=== PATIENT | female | born 1950 | race Caucasian/White ===

== ENCOUNTER 2018-09-20 13:33 | Emergency (ER) | payer MEDICARE, OTHER ==
[2018-09-20 14:23] VITALS: BP 158/87
--- NOTE | 2018-09-20 14:30 | ED ---
Adult Trauma - HPI Summary HPI Summary: Patient is a 68-year-old female presenting to the ED with facial injury which occurred last evening. She states she was walking into the bathroom, tripped and fell, hitting the left side of her face and her nose. She states she went immediately back to bed. She awoke with some bleeding from the nose, but denies any pain. She denies any headache, visual changes, LOC, confusion, memory loss or pain at this time. She is able to open and close her jaw without discomfort. She has pain, minimally over the bridge of the nose, more to the right side, but denies any pain to the maxilla area. She denies any pain to the forehead and denies headaches. No history of concussions. She takes Flovent daily and denies blood thinners. - History of Current Complaint Chief Complaint: EDFacialInjury Stated Complaint: FELL LAST NIGHT/FACIAL INJURIES PER PT Time Seen by Provider: 09/20/18 14:01 Hx Obtained From: Patient ?: No Mechanism of Injury: Blunt Trauma Ambulatory at the Scene: Yes Loss of Consciousness: no loss of consciousness Impact: Frontal Onset/Duration: Started Hours Ago Onset of Pain: Hours Onset Severity: Moderate Current Severity: Moderate Pain Intensity: 0 Pain Scale Used: 0-10 Numeric Character: Aching Aggravating Factor(s): Nothing Alleviating Factor(s): Nothing Associated Signs & Symptoms: Positive: Negative - Allergy/Home Medications Allergies/Adverse Reactions: Allergies Allergy/AdvReac Type Severity Reaction Status Date / Time No Known Allergies Allergy Verified 09/20/18 13:41 Home Medications: Home Medications Fluticasone HFA 220 mcg(NF) [Flovent Hfa 220 Mcg(NF)] 1 puff INH DAILY 09/20/18 [History Confirmed 09/20/18] PMH/Surg Hx/FS Hx/Imm Hx Previously Healthy: Yes - Immunization History Hx Pertussis Vaccination: No Immunizations Up to Date: Yes Infectious Disease History: No Infectious Disease History: Denies: Traveled Outside the [place] in Last 30 Days - Social History Occupation: Unemployed Lives: With Family Alcohol Use: None Hx Substance Use: No Substance Use Type: Reports: None Hx Tobacco Use: No Smoking Status (MU): Never Smoked Tobacco Review of Systems Constitutional: Negative Negative: Fever, Chills, Fatigue, Skin Diaphoresis Negative: Palpitations, Chest Pain Negative: Shortness Of Breath, Cough Genitourinary: Negative Positive: no symptoms reported, see HPI Negative: Myalgia Positive: Bruising - bilateral under eyes Neurological: Negative All Other Systems Reviewed And Are Negative: Yes Physical Exam Triage Information Reviewed: Yes Vital Signs On Initial Exam: Initial Vitals Temp Pulse Resp BP Pulse Ox 97.8 F 80 16 169/90 98 09/20/18 13:38 09/20/18 13:38 09/20/18 13:38 09/20/18 13:38 09/20/18 13:38 Vital Signs Reviewed: Yes Appearance: Positive: Well-Appearing, Well-Nourished Skin: Positive: Warm, Skin Color Reflects Adequate Perfusion, Other - abrasion to the L cheek Head/Face: Positive: Normal Head/Face Inspection, Other - ecchymosis under bilateral eyes, abrasion l cheek, no Eyes: Positive: EOMI, Conjunctiva Clear ENT: Positive: Other - bilateral ecchymosis under eyes with small abrasion to the L cheek, no limits to extraocular mobility, no evidence of obrital floor fx , proptosis, septal hematoma, or conjunctival hemorrhage. No epistaxis. Neck: Positive: Supple Respiratory/Lung Sounds: Positive: Clear to Auscultation, Breath Sounds Present Cardiovascular: Positive: Pulses are Symmetrical in both Upper and Lower Extremities Musculoskeletal: Positive: Normal, Strength/ROM Intact Neurological: Positive: Speech Normal Psychiatric: Positive: Affect/Mood Appropriate Diagnostics - Vital Signs Vital Signs Temp Pulse Resp BP Pulse Ox 09/20/18 14:22 98.2 F 68 16 158/87 99 09/20/18 13:38 97.8 F 80 16 169/90 98 - Laboratory Lab Statement: Any lab studies that have been ordered have been reviewed, and results considered in the medical decision making process. Adult Trauma Course/Dx - Course Course Of Treatment: On physical examination, the patient is noted to have a small abrasion to the bridge of the nose as well as a small abrasion to the left cheek. She has bilateral ecchymosis under the eyes. Denies any pain on palpation to the maxillary sinuses or frontal sinuses. Slight pain to the bridge of the nose, more to the right side, with no obvious deformity. No bleeding on arrival. Discussed with the patient obtaining maxillofacial to assure she does not have any nasal bone fracture or maxillary fractures. She declines this. She is also declining an x-ray. She states she would not like the radiation. I discussed with the patient I did not feel she has a fracture, but unless we obtain images, we will not be able to tell. She states she'll follow up with ENT if she develops any worsening pain, nasal cosmetic reasons or other symptoms. She states she does not have a headache, confusion, memory loss, nausea or vomiting or other concussive sxs. She will be dx with facial trauma. - Diagnoses Differential Diagnosis/HQI/PQRI: Positive: Contusion(s), Fracture, Hematoma(s) Provider Diagnoses: Facial trauma, Contusion Discharge - Sign-Out/Discharge Documenting (check all that apply): Patient Departure Patient Received Moderate/Deep Sedation with Procedure: No - Discharge Plan Condition: Stable Disposition: HOME Patient Education Materials: Facial Contusion (ED) Referrals: Maurice Adhikari MD [Medical Doctor] - Chanell Guerrero MD [Primary Care Provider] - Additional Instructions: Please follow up with Dr. Adhikari's office for any worsening symptoms Ice to the are Tylenol 650mg three times daily for pain - Billing Disposition and Condition Condition: STABLE Disposition: Home
== END 2018-09-20 14:22 | disposition home or self-care (01) ==
LOC: ED 13:33
DX: S09.93XA Unspecified injury of face, initial encounter (principal); S00.83XA Contusion of other part of head, initial encounter; S00.81XA Abrasion of other part of head, initial encounter; S00.31XA Abrasion of nose, initial encounter; W01.0XXA Fall on same level from slipping, tripping and stumbling without subsequent striking against object, initial encounter; Y93.01 Activity, walking, marching and hiking; Y92.002 Bathroom of unspecified non-institutional (private) residence as the place of occurrence of the external cause
CPT/HCPCS: 99282